=== PATIENT | female | born 1985 | race African-American/Black ===

== ENCOUNTER 2021-02-20 18:41 | Emergency (ER) | payer BC ==
[~2021-02-20] VITALS: Ht 160 cm; Wt 65.8 kg
[2021-02-20] MEDS ORDERED: HYDROCHLOROTHIA25 M1 PO (18:59)
[2021-02-20] MEDS ORDERED: CELEXA 10 MG TA10 M1 PO (18:59)
[2021-02-20] MEDS ORDERED: HYDROCODON-ACE1 EAC7 PO (21:33)
[2021-02-20] MEDS ORDERED: NORFLEX100 MG PO (21:33)
[2021-02-20 21:50] VITALS: BP 133/83
== END 2021-02-20 21:50 | disposition home or self-care (01) ==
LOC: M.ERS 18:41
DX: S01.01XA Laceration without foreign body of scalp, initial encounter (principal); S01.511A Laceration without foreign body of lip, initial encounter; S16.1XXA Strain of muscle, fascia and tendon at neck level, initial encounter; V43.54XA Car driver injured in collision with van in traffic accident, initial encounter; Y93.I9 Activity, other involving external motion; Y92.488 Other paved roadways as the place of occurrence of the external cause; Y99.8 Other external cause status